=== PATIENT | female | born 1950 ===

== ENCOUNTER 2017-08-20 22:34 | Emergency (ER) | payer MEDICARE, MEDICAID ==
[2017-08-20 23:01] VITALS: BMI 29.0
--- NOTE | 2017-08-21 00:08 | ED PDOC ---
Arrival/HPI - General Historian: Patient <Librado Murillo - Last Filed: 08/21/17 03:24> <Brayan Robles - Last Filed: 08/21/17 05:42> - General Chief Complaint: Back Pain Time Seen by Provider: 08/20/17 23:58 - History of Present Illness Narrative History of Present Illness (Text): 08/21/17 00:05 67 y/o female, pmh including infrarenal abdominal aortic aneurysm/pylonephritis and pneumonia, nkda, c/o rt. flank pain suddenly onset started yesterday with no fall or trauma. Aching pain, aggravated by movement and pain when sitting, no coughing or night sweat, no rash, no numbness or tingling, no palpitation, no flank pain, no rash, no night sweat, no other medical or psychological complaints. (Librado Murillo) Past Medical History - Provider Review Nursing Documentation Reviewed: Yes - Infectious Disease Hx of Infectious Diseases: None - Tetanus Immunization Tetanus Immunization: Unknown - Cardiac Other/Comment: aortic aneursyn - Gastrointestinal Other/Comment: AAA - Psychiatric Hx Substance Use: No - Past Surgical History Past Surgical History: No Previous - Anesthesia Hx Anesthesia: No Hx Anesthesia Reactions: No Hx Malignant Hyperthermia: No - Suicidal Assessment Feels Threatened In Home Enviroment: No <Librado Murillo - Last Filed: 08/21/17 03:24> Family/Social History - Physician Review Nursing Documentation Reviewed: Yes Family/Social History: Unknown Family HX Smoking Status: Heavy Smoker > 10 Cigarettes Daily Hx Alcohol Use: No Hx Substance Use: No Hx Substance Use Treatment: No <Librado Murillo - Last Filed: 08/21/17 03:24> Allergies/Home Meds <Librado Murillo - Last Filed: 08/21/17 03:24> <Brayan Robles - Last Filed: 08/21/17 05:42> Allergies/Adverse Reactions: Allergies No Known Allergies Allergy (Verified 10/12/14 21:06) Home Medications: Home Meds Medication Instructions Recorded Confirmed Aspirin [Aspirin Chewable] 1 tab PO DAILY 08/20/17 08/20/17 Review of Systems - Review of Systems Constitutional: absent: Fatigue, Fevers Eyes: absent: Vision Changes ENT: absent: Hearing Changes Respiratory: absent: SOB, Cough Cardiovascular: absent: Chest Pain Gastrointestinal: absent: Abdominal Pain, Nausea, Vomiting Musculoskeletal: Back Pain, Myalgias. absent: Arthralgias, Neck Pain, Joint Swelling Skin: absent: Rash, Pruritis, Skin Lesions Neurological: absent: Headache, Dizziness Psychiatric: absent: Anxiety, Depression <Librado Murillo - Last Filed: 08/21/17 03:24> Physical Exam Vital Signs Reviewed: Yes Temperature: Afebrile Blood Pressure: Normal Pulse: Regular Respiratory Rate: Normal Appearance: Positive for: Well-Appearing, Non-Toxic Pain Distress: Severe Mental Status: Positive for: Alert and Oriented X 3 - Systems Exam Head: Present: Atraumatic, Normocephalic Pupils: Present: PERRL Extroacular Muscles: Present: EOMI Conjunctiva: Present: Normal Mouth: Present: Moist Mucous Membranes Neck: Present: Normal Range of Motion Respiratory/Chest: Present: Clear to Auscultation, Good Air Exchange, Tender to Palpation (+ttp on the rt. trapezius region and +rt. cva tenderness). No: Respiratory Distress, Accessory Muscle Use, Wheezes, Decreased Breath Sounds, Rales, Retracting, Rhonchi, Tachypneic Cardiovascular: Present: Regular Rate and Rhythm, Normal S1, S2. No: Murmurs Abdomen: Present: Normal Bowel Sounds. No: Tenderness, Distention, Peritoneal Signs, Rebound, Guarding Back: Present: Normal Inspection, CVA Tenderness (rt). No: Midline Tenderness Upper Extremity: Present: Normal Inspection. No: Cyanosis, Edema Lower Extremity: Present: Normal Inspection. No: Edema Neurological: Present: GCS=15, Speech Normal, Motor Func Grossly Intact, Gait Normal, Memory Normal Skin: Present: Warm, Dry, Normal Color. No: Rashes Psychiatric: Present: Alert, Oriented x 3, Normal Insight, Normal Concentration <Librado Murillo - Last Filed: 08/21/17 03:24> Vital Signs Temp Pulse Resp BP Pulse Ox 08/21/17 05:00 97.9 F 76 16 135/73 99 08/21/17 03:00 97.8 F 72 17 130/52 L 100 08/21/17 01:00 97.9 F 78 16 138/92 H 100 08/20/17 23:04 97.9 F 74 18 149/76 98 Medical Decision Making - EKG Interpretation Interpreted by ED Physician: Yes Type: 12 lead EKG <Librado Murillo - Last Filed: 08/21/17 03:24> <Brayan Robles - Last Filed: 08/21/17 05:42> ED Course and Treatment: 08/21/17 00:19 -labs/ua -EKG -CT abdomen/pelvis -Dissection CT study -EKG -IVF/morphine -Observe and reassess 08/21/17 02:42 -EKG: NSR @ 65 BPM, no ST elevation or depression, no T wave inversion. -Chest xray show no acute findings. -CT abdomen and pelvis is pending -CT dissection study is pending -Labs show no acute findings, negative troponin -Pending UA (Librado Murillo) XR Chest, 1 View EXAM DATE/TIME:08/21/2017 12:18 AM IMPRESSION: - No radiographic evidence of acute disease in the chest. Dictated and Authenticated by: Lizzeth Spann MD 08/21/2017 3:56 AM Eastern Time ([place]) CT Abdomen and Pelvis Without Intravenous Contrast EXAM DATE/TIME: 08/21/2017 12:14 AM IMPRESSION: - No evidence of significant acute process on this unenhanced exam. - Tiny, nonobstructing left renal stones. No evidence of obstructive uropathy. - 4.2 cm infrarenal abdominal aortic aneurysm. Dictated and Authenticated by: Lizzeth Spann MD 08/21/2017 3:54 AM Eastern Time ([place]) CT Chest With Intravenous Contrast CT Abdomen and Pelvis With Intravenous Contrast EXAM DATE/TIME: 08/21/2017 12:14 AM IMPRESSION: - No evidence of significant acute process. - 4.2 cm infrarenal abdominal aortic aneurysm, mildly enlarged compared to a 06/2016 CT. No evidence of aneurysm rupture. Dictated and Authenticated by: Lizzeth Spann MD 08/21/2017 3:46 AM Eastern Time ([place]) (Brayan Robles) - Lab Interpretations Lab Results: 08/21/17 00:30 08/21/17 00:30 Lab Results 08/21/17 03:30: Urine Color Yellow, Urine Appearance Clear, Urine pH 7.0, Ur Specific [place] 1.010, Urine Protein Negative, Urine Glucose (UA) Negative, Urine Ketones Negative, Urine Blood Small H, Urine Nitrate Negative, Urine Bilirubin Negative, Urine Urobilinogen 0.2, Ur Leukocyte Esterase Negative, Urine RBC 2 - 5, Urine WBC 0 - 2, Ur Epithelial Cells 1 - 3 08/21/17 00:30: WBC 9.6, RBC 3.61, Hgb 11.7 L, Hct 34.0 L, MCV 94.2, MCH 32.4, MCHC 34.4, RDW 12.7, Plt Count 395, MPV 9.5, Gran % 53.1, Lymph % (Auto) 39.6 H , Clarke % (Auto) 5.2, Eos % (Auto) 1.9, Baso % (Auto) 0.2, Gran # 5.10, Lymph # 3.8 H, Clarke # 0.5, Eos # 0.2, Baso # 0.02 08/21/17 00:30: Sodium 141, Potassium 3.8, Chloride 106, Carbon Dioxide 24, Anion Gap 14, BUN 14, Creatinine 0.7, Est GFR ( Amer) > 60, Est GFR (Non- Af Amer) > 60, Random Glucose 109, Calcium 9.4, Magnesium 2.0, Total Bilirubin 0.4, AST 42 H, ALT 38, Alkaline Phosphatase 152 H, Lactate Dehydrogenase 531, Total Creatine Kinase 198, Troponin I < 0.01, Total Protein 7.9, Albumin 4.2, Globulin 3.7, Albumin/Globulin Ratio 1.1 - RAD Interpretation Radiology Orders: 08/21/17 00:14 ABD & PELVIS W/O PO OR IV CONT [CT] Stat ANGIOGRAPHY DISECTION PROTOCOL [CT] Stat 08/21/17 00:18 CHEST PORTABLE [RAD] Stat - EKG Interpretation EKG Interpretation (Text): 08/21/17 02:41 -EKG: NSR @ 65 BPM, no ST elevation or depression, no T wave inversion. (Librado Murillo) - Medication Orders Current Medication Orders: Sodium Chloride (Sodium Chloride 0.9%) 1,000 mls @ 100 mls/hr IV .Q10H JAMIE Last Admin: 08/21/17 01:35 Dose: 100 mls/hr eMAR Start Stop Document 08/21/17 01:35 AB (Rec: 08/21/17 01:35 AB [facility] [id number]) Intravenous Solution Start Date 08/21/17 Start Time 00:15 Discontinued Medications Ketorolac Tromethamine (Toradol) 30 mg IVP STAT STA Stop: 08/21/17 02:22 Last Admin: 08/21/17 02:32 Dose: 30 mg MAR Pain Assessment Document 08/21/17 02:32 AB (Rec: 08/21/17 02:32 AB [facility] [id number]) Pain Reassessment Is this a pain reassessment? Yes Sleep Is patient sleeping during reassessment? No Presence of Pain Presence of Pain Yes Pain Scale Used Pain Scale Used Numeric Location Pain Location Body Site Back Description Description Constant Intensity of Pain at present 5 IVP Administration Document 08/21/17 02:32 AB (Rec: 08/21/17 02:32 AB [facility] [id number]) Charges for Administration # of IVP Administrations 1 Morphine Sulfate (Morphine) 4 mg IVP STAT STA Stop: 08/21/17 00:15 Last Admin: 08/21/17 00:34 Dose: 4 mg MAR Pain Assessment Document 08/21/17 00:34 AB (Rec: 08/21/17 01:35 [id number]) Pain Reassessment Is this a pain reassessment? Yes Sleep Is patient sleeping during reassessment? No Presence of Pain Presence of Pain Yes Pain Scale Used Pain Scale Used Numeric Description Description Constant IVP Administration Document 08/21/17 00:34 AB (Rec: 08/21/17 01:35 [id number]) Charges for Administration # of IVP Administrations 1 - PA / DATABASE MODELER / Resident Statement MD/DO has reviewed & agrees with the documentation as recorded. <Librado Murillo - Last Filed: 08/21/17 03:24> Disposition/Present on Arrival - Present on Arrival Any Indicators Present on Arrival: No History of DVT/PE: No History of Uncontrolled Diabetes: No Urinary Catheter: No History of Decub. Ulcer: No History Surgical Site Infection Following: None - Disposition Have Diagnosis and Disposition been Completed?: Yes <Librado Murillo - Last Filed: 08/21/17 03:24> - Disposition Disposition Time: 05:40 Patient Plan: Discharge <Brayan Robles - Last Filed: 08/21/17 05:42> - Disposition Diagnosis: Back pain, Kidney stone Disposition: HOME/ ROUTINE Patient Problems: Current Active Problems Problem Status Onset Back pain Acute Condition: GOOD Discharge Instructions (ExitCare): Kidney Stones (ED) Additional Instructions: Colleen- Follow up with the Urologist, Dr. Tye Kelsey, . Percocet is for really bad pain, it will upset your stomach, use the zofran for that. Return to us if any problem. The aneurysm is stable. Best- Dr. Brayan Robles Forms: Dubb (Salvadorean)
[2017-08-21] MEDS ORDERED: Morphine 4 mg/ml ISec IVP STA (00:14)
[2017-08-21] MEDS ORDERED: Sodium Chloride 0.9% 1,000 ML IV SCH (00:15)
[2017-08-21 01:10] LABS: BASO # 0.02 K/mm3 (0.0-2.0); BASO % 0.2 % (0.0-3.0); EOS # 0.2 (0.0-0.7); EOS % 1.9 % (1.5-5.0); GRAN # 5.1 (1.4-6.5); GRAN % 53.1 % (50.0-68.0); HEMOGLOBIN 11.7 g/dL (12.0-16.0); LYMPH # 3.8 (1.2-3.4); LYMPH % 39.6 % (22.0-35.0); MEAN CELL VOLUME 94.2 fl (80.0-105.0); MEAN CORPUSCULAR HEMOGLOBIN 32.4 pg (25.0-35.0); MEAN CORPUSCULAR HGB CONC 34.4 g/dl (31.0-37.0); MEAN PLATELET VOLUME 9.5 fl (7.0-11.0); MONO # 0.5 (0.1-0.6); MONO % 5.2 % (1.0-6.0); RBC 3.61 10^6/uL (3.5-6.1); RED CELL DISTRIBUTION WIDTH 12.7 % (11.5-14.5); WHITE BLOOD COUNT 9.6 10^3/ul (4.5-11.0)
[2017-08-21 01:27] LABS: ALB/GLOB RATIO 1.1 (1.1-1.8); ALBUMIN 4.2 g/dL (3.0-4.8); ALT/SGPT 38 U/L (7-56); AST/SGOT 42 U/L (14-36); BLOOD UREA NITROGEN 14 mg/dL (7-21); CALCIUM 9.4 mg/dL (8.4-10.5); GFR AFRICAN-AMERICAN > 60; GFR NON-AFRICAN AMERICAN > 60
[2017-08-21 01:37] LABS: TROPONIN I < 0.01 ng/mL
--- NOTE | 2017-08-21 03:47 | CT ---
EXAM: CT Chest With Intravenous Contrast CT Abdomen and Pelvis With Intravenous Contrast EXAM DATE/TIME: 08/21/2017 12:14 AM CLINICAL HISTORY: 67 years old, female; Pain; Abdominal pain; Chest pain; Additional info: Rt. Flank pain, infrarenal abdominal aortic aneury TECHNIQUE: Axial computed tomography images of the chest, abdomen and pelvis with intravenous contrast during the arterial phase of enhancement. All CT scans at this facility use one or more dose reduction techniques, viz.: automated exposure control; ma/kV adjustment per patient size (including targeted exams where dose is matched to indication; i.e. head); or iterative reconstruction technique. All CT scans at this facility use one or more dose reduction techniques, viz.: automated exposure control; ma/kV adjustment per patient size (including targeted exams where dose is matched to indication; i.e. head); or iterative reconstruction technique. Coronal and sagittal reformatted images were created and reviewed. CONTRAST: 146 mL of OMNI 350 administered intravenously. COMPARISON: Prior CT abdomen and pelvis of 05/23/2016. FINDINGS: VASCULATURE: AORTA: Infrarenal abdominal aortic aneurysm. This measures up to 4.2 x 4.2 cm in diameter, mildly enlarged compared to the prior CT (previously 3.8 x 3.8 cm at the same location on the prior exam). It is associated with mural thrombus. No evidence of aortic dissection. No evidence of aortic rupture. PULMONARY ARTERIES: Contrast opacification of the pulmonary arteries is adequate, and there are no filling defects seen to suggest pulmonary embolism. GREAT VESSELS OF AORTIC ARCH: No evidence of occlusion. CELIAC TRUNK AND MESENTERIC ARTERIES: No evidence of occlusion. RENAL ARTERIES: No evidence of occlusion.. ILIAC ARTERIES: Demonstrate atherosclerotic calcification. No evidence of occlusion. CHEST: LUNGS: No evidence of significant focal consolidation/infiltrate in the lungs. No evidence of diffuse pulmonary vascular congestion. PLEURAL SPACE: No pneumothorax or pleural effusions seen. HEART: Coronary artery calcification. ABDOMEN: LIVER: Fatty infiltration of the liver. GALLBLADDER AND BILE DUCTS: No evidence of acute cholecystitis. PANCREAS: No evidence of acute pancreatitis. SPLEEN: No acute abnormality of the spleen identified. ADRENALS: No acute abnormality of the adrenal glands identified. KIDNEYS AND URETERS: Low density lesion in the right kidney, most likely a cyst. This measures 1.7 cm. No acute abnormality of the kidneys identified. STOMACH AND BOWEL: Colonic diverticulosis, with no evidence of acute diverticulitis. Otherwise, no significant abnormality of the bowel is identified. No evidence of bowel obstruction. APPENDIX: Appendix is seen, and is within normal limits in appearance. PELVIS: BLADDER: No acute abnormality of the bladder is seen. REPRODUCTIVE: No acute abnormality of the uterus identified. No evidence of large adnexal masses. CHEST, ABDOMEN and PELVIS: INTRAPERITONEAL SPACE No evidence of free air or free fluid. BONES/JOINTS: Bony structures appear demineralized. SOFT TISSUES: No acute abnormality of the visualized soft tissues seen. LYMPH NODES: Stable appearance of a small 1 cm round, peripherally calcified densityin the right pelvis, in the right retroperitoneum abutting the right common iliac vessels. This most likely represents a calcified lymph node. There appear to be multiple nearby additional small, noncalcified and partially calcified lymph nodes seen. No evidence of diffuse pathologic lymphadenopathy. IMPRESSION: - No evidence of significant acute process. - 4.2 cm infrarenal abdominal aortic aneurysm, mildly enlarged compared to a 05/23/2016 CT. No evidence of aneurysm rupture. - See above for remaining findings.
--- NOTE | 2017-08-21 03:54 | CT ---
EXAM: CT Abdomen and Pelvis Without Intravenous Contrast EXAM DATE/TIME: 08/21/2017 12:14 AM CLINICAL HISTORY: 67 years old, female; Pain; Abdominal pain; Flank; Right; Additional info: Rt. Flank pain, h/o infrarenal abdominal aortic an TECHNIQUE: Axial computed tomography images of the abdomen and pelvis without intravenous contrast. All CT scans at this facility use one or more dose reduction techniques, viz.: automated exposure control; ma/kV adjustment per patient size (including targeted exams where dose is matched to indication; i.e. head); or iterative reconstruction technique. Coronal and sagittal reformatted images were created and reviewed. COMPARISON: Prior CT abdomen and pelvis of 2016-05-23 FINDINGS: LOWER THORAX: No infiltrate seen in the lung bases. ABDOMEN: LIVER: Fatty infiltration of the liver, with areas of focal fatty sparing along the gallbladder fossa. Hepatomegaly, with the liver measuring 18 cm in length on the coronal images. GALLBLADDER AND BILE DUCTS: No CT evidence of acute cholecystitis. No evidence of significant biliary ductal dilatation. PANCREAS: No CT evidence of acute pancreatitis. SPLEEN: No acute abnormality of the spleen identified. ADRENALS: No acute abnormality of the adrenal glands identified. KIDNEYS AND URETERS: Tiny, nonobstructing left renal stones. Low density lesion in the right kidney, most likely a cyst. This measures 1.5 cm. No evidence of hydroureteronephrosis. STOMACH AND BOWEL: Colonic diverticulosis, with no evidence of acute diverticulitis. Retained stool noted throughout the colon. Otherwise, no significant abnormality of the bowel is identified. No evidence of bowel obstruction. . APPENDIX: Appendix is seen, and is within normal limits in appearance. PELVIS: BLADDER: No acute abnormality of the bladder identified. REPRODUCTIVE:No acute abnormality of the reproductive organs is seen. No acute abnormality of the uterus identified. No evidence of large adnexal masses. ABDOMEN and PELVIS: INTRAPERITONEAL SPACE: No evidence of free intraperitoneal air or fluid. BONES/JOINTS: Bony structures appear demineralized. SOFT TISSUES: No acute abnormality of the visualized soft tissues is seen. VASCULATURE: 4.2 cm x 4.2 cm infrarenal abdominal aortic aneurysm, mildly enlarged compared to the prior exam, measuring 3.8 x 3.8 cm at the same location on the prior CT. No evidence of aneurysm rupture. LYMPH NODES: Stable appearance of multiple small, round calcified densities in the right retroperitoneum, abutting the right iliac vessels, most likely representing multiple small lymph nodes. No evidence of diffuse pathologic lymphadenopathy. IMPRESSION: - No evidence of significant acute process on this unenhanced exam. - Tiny, nonobstructing left renal stones. No evidence of obstructive uropathy. - 4.2 cm infrarenal abdominal aortic aneurysm. - See above for remaining findings.
--- NOTE | 2017-08-21 03:56 | RAD ---
EXAM: XR Chest, 1 View EXAM DATE/TIME: 08/21/2017 12:18 AM CLINICAL HISTORY: 67 years old, female; Pain; Chest pain; Additional info: Medical clearance TECHNIQUE: Frontal view of the chest. COMPARISON: Prior chest radiographs of 2016-07-29 FINDINGS: LUNGS: Lungs are well inflated, and appear clear radiographically, with no evidence of significant focal consolidation/infiltrate or of pulmonary vascular congestion. PLEURAL SPACE: No pneumothorax or pleural effusions seen. HEART: Heart does not appear significantly enlarged. MEDIASTINUM: Mediastinal contour is within normal limits. BONES/JOINTS: Bony structures appear demineralized. Multilevel degenerative changes of the spine noted. VASCULATURE: Calcification of the aortic arch. IMPRESSION: - No radiographic evidence of acute disease in the chest. - See above for remaining findings.
[2017-08-21 05:06] LABS: URINE BILIRUBIN NEGATIVE (NEGATIVE); URINE BLOOD SMALL (NEGATIVE); URINE GLUCOSE (UA) NEGATIVE (NEGATIVE); URINE LEUKOCYTE ESTERASE NEGATIVE Leu/uL (NEGATIVE); URINE NITRATE NEGATIVE (NEGATIVE); URINE PROTEIN NEGATIVE mg/dL (<30 mg/dL); URINE UROBILINOGEN 0.2 E.U./dL (<1 E.U./dL)
[2017-08-21 05:14] VITALS: BP 135/73; PULSE 76; RESP 16; TEMP 97.9; O2SAT 99
[2017-08-21 05:15] LABS: URINE APPEARANCE CLEAR (CLEAR); URINE COLOR YELLOW (YELLOW)
[2017-08-21 05:28] LABS: URINE WBC 0 - 2 /hpf (0-6)
--- NOTE | 2017-08-21 22:41 | CARD ---
APPROVED REPORT EKG Measurement Heart [id number] ID [id number] <Conclusion> Normal sinus rhythm Incomplete right bundle branch block Borderline ECG
== END 2017-08-21 06:53 | disposition home or self-care (01) ==
LOC: ED 22:34
DX: N20.0 Calculus of kidney (principal); M54.9 Dorsalgia, unspecified; F17.210 Nicotine dependence, cigarettes, uncomplicated
CPT/HCPCS: 71045; 71275; 74175; 74176; 80053; 81001; 82550; 83615; 83735; 84484; 85025; 93005; 96374; 96375; 99284; J1885; J2270; J7040; Q9967